=== PATIENT | male | born 1955 | race Caucasian/White ===

== ENCOUNTER 2017-04-15 12:03 | Inpatient (IN) | payer OTHER, BC ==
[~2017-04-15] VITALS: Ht 175.3 cm; Wt 83.7 kg
[~2017-04-15 12:03] MED LIST: BACITRACIN 50,000 UNIT ONE; BUPIVACAINE/PF 0.5% ONE; EPINEPHRINE 1 MG/ML, 1ML ONE; THROMBIN 5,000 UNIT VIAL TP ONE
[2017-04-15 12:34] VITALS: BP 160/98
[2017-04-15] MEDS ORDERED: LACTATED RINGERS 1,000 ML IV SCH (13:00)
[2017-04-15] MEDS ORDERED: PNEUMOCOCCAL 23 VACCINE IM-VACC ONE (13:30)
[2017-04-15] MEDS ORDERED: FLU VACC QS2017-18 (36MOS+) UP/PF 0.5 ML IM-VACC ONE (13:30)
[2017-04-15] MEDS ORDERED: ASPI-650 PO (13:31)
[2017-04-15] MEDS ORDERED: HYDR-3307 PO (13:31)
[2017-04-15] MEDS ORDERED: ATOR40TA78 PO (13:31)
[2017-04-15] MEDS ORDERED: MULT-224 PO (13:31)
[2017-04-15] MEDS ORDERED: LOSA1TAB17 PO (13:31)
[2017-04-15] MEDS ORDERED: FENTANYL PF 100 MCG/2ML ONE ×3 (13:51→17:59)
[2017-04-15] MEDS ORDERED: BUPIVACAINE/PF 0.25% ONE (13:51)
[2017-04-15] MEDS ORDERED: MIDAZOLAM 1 MG/ML, 2ML ONE (15:03)
[2017-04-15] MEDS ORDERED: PROPOFOL 10 MG/ML, 20ML ONE (15:04)
[2017-04-15] MEDS ORDERED: LIDOCAINE-MPF 2% ,5ML ONE (15:07)
[2017-04-15] MEDS ORDERED: SUCCINYLCHOLINE 20 MG/ML, 10ML ONE (15:07)
[2017-04-15] MEDS ORDERED: CEFAZOLIN 1,000 MG ONE ×2 (15:07)
[2017-04-15] MEDS ORDERED: REMIFENTANIL 2 MG ONE (15:28)
[2017-04-15] MEDS ORDERED: NEOSTIGMINE 1 MG/ML, 10ML ONE (15:45)
[2017-04-15] MEDS ORDERED: DEXAMETHASONE 4 MG/ML, 5ML ONE (15:45)
[2017-04-15] MEDS ORDERED: KETAMINE 10 MG/ML, 20ML ONE (15:45)
[2017-04-15] MEDS ORDERED: GLYCOPYRROLATE 0.2MG/1ML, 5ML ONE (15:45)
[2017-04-15] MEDS ORDERED: VASOPRESSIN 20 UNIT/ML, 1ML ONE (16:03)
[2017-04-15] MEDS ORDERED: LORazepam 2 MG/ML, 1ML IVPush PRN (16:30)
[2017-04-15] MEDS ORDERED: MEPERIDINE/PF 25MG/0.5ML IVPush PRN (16:30)
[2017-04-15] MEDS ORDERED: PROMETHAZINE 25 MG/ML, 1ML IV PRN (16:30)
[2017-04-15] MEDS ORDERED: HYDROmorphone 1 MG/ML, 1ML IV PRN (16:30)
[2017-04-15] MEDS ORDERED: ACETAMINOPHEN 325 MG TABLET PO PRN (16:30)
[2017-04-15] MEDS ORDERED: OXYcodone 5 MG/5 ML ORAL.SOL UDC PO PRN (16:30)
[2017-04-15] MEDS ORDERED: hydrALAzine 20 MG/ML, 1ML IV PRN (16:30)
[2017-04-15] MEDS ORDERED: LABETALOL 5MG/ML, 20ML IV PRN (16:30)
[2017-04-15] MEDS ORDERED: ONDANSETRON 2MG/ML, 2ML IVPush PRN ×2 (16:30→18:00)
[2017-04-15] MEDS ORDERED: HYDROmorphone 2 MG/ML, 1ML ONE (17:05)
[2017-04-15] MEDS ORDERED: ONDANSETRON 2MG/ML, 2ML ONE (17:19)
[2017-04-15] MEDS ORDERED: OXYcodone 5 MG/5 ML ORAL.SOL UDC ONE (17:59)
[2017-04-15] MEDS ORDERED: ACETAMINOPHEN 650 MG/20.3 ML UDC ONE (17:59)
[2017-04-15] MEDS ORDERED: SENNA/DOCUSATE TABLET PO PRN (18:00)
[2017-04-15] MEDS ORDERED: morphine SULFATE 10 MG/ML, 1ML IVPush PRN (18:00)
[2017-04-15] MEDS ORDERED: HYDROcodone/APAP 5/325 TABLET PO PRN (18:00)
[2017-04-15] MEDS ORDERED: METHOCARBAMOL 750 MG TABLET PO PRN (18:00)
[2017-04-15] MEDS ORDERED: OXYcodone/APAP 5/325MG TABLET PO PRN (18:00)
[2017-04-15] MEDS ORDERED: LABETALOL 5MG/ML, 20ML IVPush PRN (18:00)
[2017-04-15] MEDS ORDERED: PHARMACY MAY ADJ FOR RENAL FX MC PRN (18:00)
[2017-04-15] MEDS ORDERED: BISACODYL 10 MG SUPP PR PRN (18:00)
[2017-04-15] MEDS ORDERED: MAGNESIUM HYDROXIDE 8%, 30ML UDC PO PRN (18:00)
[2017-04-15] MEDS ORDERED: DIPHENHYDRAMINE 50 MG CAPSULE PO PRN (18:00)
[2017-04-15] MEDS ORDERED: PROMETHAZINE 25 MG/ML, 1ML IM PRN (18:00)
[2017-04-15] MEDS: FENTANYL PF 100 MCG/2ML IV PRN ×2 (18:18→18:27)
[2017-04-15] MEDS ORDERED: METHOCARBAMOL 750 MG TABLET ONE (18:22)
[2017-04-15] MEDS: D5%-0.9% NACL+KCL 20MEQ 1,000 ML IV SCH (19:34)
[2017-04-15] MEDS: CEFAZOLIN PMX 1GM/50ML 50 ML IVPB SCH (19:34)
[2017-04-15] MEDS: LABETALOL 5MG/ML 40ML VIAL IVPush SCH (20:08)
[2017-04-15] MEDS ORDERED: ATORVASTATIN 40 MG TABLET PO SCH (21:00)
[2017-04-15 23:36] VITALS: BP 112/72
[2017-04-16] MEDS: CEFAZOLIN PMX 1GM/50ML 50 ML IVPB SCH (02:25)
[2017-04-16 02:26] VITALS: BP 137/96
[2017-04-16] MEDS: LABETALOL 5MG/ML 40ML VIAL IVPush SCH ×3 (02:26→17:33)
[2017-04-16] MEDS: HYDROcodone/APAP 10/325 MG TABLET PO PRN ×4 (02:26→20:20)
[2017-04-16] MEDS: D5%-0.9% NACL+KCL 20MEQ 1,000 ML IV SCH ×2 (04:00→09:28)
[2017-04-16 04:39] VITALS: BP 111/68
[2017-04-16 06:42] VITALS: BP 147/83
[2017-04-16] MEDS: LOSARTAN 50MG TABLET PO SCH (08:19)
[2017-04-16] MEDS: HYDROCHLOROTHIAZIDE 25 MG TABLET PO SCH (08:19)
[2017-04-16] MEDS: ATORVASTATIN 40 MG TABLET PO SCH (08:19)
[2017-04-16] MEDS ORDERED: TEMPLATE NON-FORMULARY MED. (Losartan/Hydrochlorothiazide** (Losartan-Hctz 100-25 Mg Tab PO SCH (09:00)
[2017-04-16] MEDS: CEFAZOLIN PMX 1GM/50ML 50 ML IV SCH ×2 (09:25→17:32)
[2017-04-16 13:07] VITALS: BP 148/79
[2017-04-16 19:27] VITALS: BP 151/83
[2017-04-17] MEDS: D5%-0.9% NACL+KCL 20MEQ 1,000 ML IV SCH ×2 (00:30→13:10)
[2017-04-17] MEDS: CEFAZOLIN PMX 1GM/50ML 50 ML IV SCH ×4 (01:30→23:06)
[2017-04-17 01:45] VITALS: BP 120/86
[2017-04-17] MEDS: LABETALOL 5MG/ML 40ML VIAL IVPush SCH ×4 (02:00→23:06)
[2017-04-17] MEDS: HYDROcodone/APAP 10/325 MG TABLET PO PRN ×5 (04:00→20:43)
[2017-04-17 07:11] VITALS: BP 136/80
[2017-04-17] MEDS: ATORVASTATIN 40 MG TABLET PO SCH (07:49)
[2017-04-17] MEDS: LOSARTAN 50MG TABLET PO SCH (07:49)
[2017-04-17] MEDS: HYDROCHLOROTHIAZIDE 25 MG TABLET PO SCH (07:49)
[2017-04-17] MEDS: METHOCARBAMOL 750 MG TABLET PO SCH ×3 (09:24→20:43)
[2017-04-17] MEDS ORDERED: KETOROLAC 30 MG/1 ML IV ONE (10:00)
[2017-04-17 13:45] VITALS: BP 152/95
[2017-04-17 20:26] VITALS: BP 145/74
[2017-04-18] MEDS: HYDROcodone/APAP 10/325 MG TABLET PO PRN ×2 (02:33→06:42)
[2017-04-18] MEDS: METHOCARBAMOL 750 MG TABLET PO SCH ×3 (02:33→09:00)
[2017-04-18 02:34] VITALS: BP 165/90
[2017-04-18 06:37] VITALS: BP 164/88
[2017-04-18] MEDS: D5%-0.9% NACL+KCL 20MEQ 1,000 ML IV SCH (08:00)
[2017-04-18] MEDS ORDERED: HYDR-3245 PO (08:25)
[2017-04-18] MEDS ORDERED: METH750T2 PO (08:27)
[2017-04-18] MEDS ORDERED: CEPH-368 PO (08:28)
[2017-04-18] MEDS: LOSARTAN 50MG TABLET PO SCH (09:00)
[2017-04-18] MEDS: HYDROCHLOROTHIAZIDE 25 MG TABLET PO SCH (09:00)
[2017-04-18] MEDS: ATORVASTATIN 40 MG TABLET PO SCH (09:00)
[2017-04-18] MEDS: CEFAZOLIN PMX 1GM/50ML 50 ML IV SCH (09:30)
[2017-04-18] MEDS: LABETALOL 5MG/ML 40ML VIAL IVPush SCH (09:56)
== END 2017-04-18 09:50 | disposition home or self-care (01) | DRG 517 ==
LOC: OUT 12:03 → ORIP 17:49 → 4NOR 18:47
PROVIDERS: ADMIT Neurological Surgery; ATTEND Neurological Surgery
PROC: 01NR0ZZ Release Sacral Nerve, Open Approach (ICD-10-PCS; 2017-04-15)
PROC: 4A11X4G Monitoring of Peripheral Nervous Electrical Activity, Intraoperative, External Approach (ICD-10-PCS; 2017-04-15)
PROC: 01NB0ZZ Release Lumbar Nerve, Open Approach (ICD-10-PCS; principal; 2017-04-15 16:30)
DX: M48.07 Spinal stenosis, lumbosacral region (principal); I10 Essential (primary) hypertension; M51.17 Intervertebral disc disorders with radiculopathy, lumbosacral region; M54.5 Low back pain; M79.1 Myalgia; M79.604 Pain in right leg; E88.2 Lipomatosis, not elsewhere classified; M51.16 Intervertebral disc disorders with radiculopathy, lumbar region; Z82.49 Family history of ischemic heart disease and other diseases of the circulatory system; Z83.3 Family history of diabetes mellitus; Z88.2 Allergy status to sulfonamides; Z72.89 Other problems related to lifestyle
CPT/HCPCS: 72100; J0171; J0690; J1100; J1170; J1885; J2250; J2405; J2704; J2710; J3010; J3490; C1751; J0330; J3480; J7120